=== PATIENT | female | born 1935 | race Caucasian/White ===

== ENCOUNTER 2022-07-15 18:58 | Emergency (ER) | payer SELFPAY ==
[2022-07-15] MEDS ORDERED: Colchicine 0.6 MG Tab PO ONE ×2 (19:44→21:41)
[2022-07-15] MEDS ORDERED: Acetaminophen 500 MG Tab PO ONE (19:44)
[2022-07-15] MEDS ORDERED: Morphine 15 MG Tab PO ONE (19:44)
[2022-07-15 20:40] LABS: CARBON DIOXIDE,CO2 21.9 mmol/L (21.0-32.0); POTASSIUM,K 5.1 mmol/L (3.5-5.1)
== END 2022-07-15 22:06 | disposition home or self-care (01) ==
LOC: MW.ED 18:58
DX: M71.21 Synovial cyst of popliteal space [Baker], right knee (principal); M10.9 Gout, unspecified; M25.461 Effusion, right knee; I48.91 Unspecified atrial fibrillation; I10 Essential (primary) hypertension; Z88.1 Allergy status to other antibiotic agents; Z79.01 Long term (current) use of anticoagulants; Z79.899 Other long term (current) drug therapy
CPT/HCPCS: 36415; 73503; 73562; 80048; 85025; 85610; 85730; 86140; 93971; 99284; A9270; 99283